=== PATIENT | female | born 1975 | race Caucasian/White ===

== ENCOUNTER → 2017-11-08 | Outpatient (REF) | payer MEDICARE, MEDICAID ==
[2017-11-08 17:45] LABS: ALBUMIN/GLOBULIN RATIO 1.03 (1.00-1.93); ALKALINE PHOSPHATASE 91 U/L (45-117); ALT/SGPT 72 U/L (12-78); ANION GAP 8 MEQ/L (8-16); AST/SGOT 51 U/L (7-37); BILIRUBIN,TOTAL 0.7 MG/DL (0.2-1.0); BLOOD UREA NITROGEN 13 MG/DL (7-18); CALCIUM LEVEL 8.9 MG/DL (8.5-10.1); CARBON DIOXIDE LEVEL 28 MEQ/L (21-32); CHLORIDE LEVEL 102 MEQ/L (98-107); CHOLESTEROL LEVEL 182 MG/DL (<200); CHOLESTEROL RISK RATIO 4.439 (<5); CREATININE FOR GFR 0.72 MG/DL (0.55-1.30); GLOMERULAR FILTRATION RATE > 60.0 (>58); GLUCOSE, FASTING 283 MG/DL (70-100); HDL CHOLESTEROL 41 MG/DL (>40); LDL CHOLESTEROL 104.8 MG/DL (<100); NON-HDL-C 141 MG/DL; POTASSIUM SERUM 4.1 MEQ/L (3.5-5.1); SODIUM LEVEL 138 MEQ/L (136-145); TOTAL PROTEIN 7.9 GM/DL (6.4-8.2); TRIGLYCERIDES LEVEL 181 MG/DL (<150)
[2017-11-08 18:31] LABS: ESTIMATED AVERAGE GLUCOSE 232 MG/DL (60-110); HEMOGLOBIN A1c 9.7 %
== END ==
LOC: M SFHCCAPE 10:17
DX: R73.01 Impaired fasting glucose (principal); Z79.899 Other long term (current) drug therapy
CPT/HCPCS: 80053

== ENCOUNTER 2017-11-21 19:13 | Emergency (ER) | payer MEDICARE, MEDICAID ==
[2017-11-21] MEDS: NS 1,000 ML IV (20:14)
[2017-11-21 20:21] LABS: BASO # 0.1 10^3/uL (0.0-0.2); BASO % 0.7 % (0.0-1.0); EOS # 0.2 10^3/uL (0.0-0.50); EOS % 2.3 % (0.0-3.0); HEMATOCRIT 48.6 % (36.0-47.0); HEMOGLOBIN 16.8 g/dl (12.0-16.0); IMMATURE GRANULOCYTE % 0.4 % (0-3.0); LYMPH # 2.7 10^3/uL (1.5-4.5); LYMPH % 29.6 % (24.0-44.0); MEAN CORPUSCULAR HEMOGLOBIN 31.8 pg (27.0-33.0); MEAN CORPUSCULAR HGB CONC 34.6 g/dl (32.0-36.5); MONO # 0.6 10^3/uL (0.0-0.8); MONO % 6.9 % (0.0-5.0); NEUTROPHILS # 5.4 10^3/uL (1.8-7.7); NEUTROPHILS % 60.1 % (36.0-66.0); PLATELET COUNT, AUTOMATED 258 10^3/uL (150-450); RED BLOOD COUNT 5.28 10^6/uL (4.00-5.40); RED CELL DISTRIBUTION WIDTH 11.7 % (11.5-14.5)
[2017-11-21 20:28] LABS: KETONE, URINE AUTO RFX NEGATIVE (NEGATIVE); LEUKOCYTE ESTERASE UR AUTO RFX NEGATIVE (NEGATIVE); NITRITE, URINE AUTO RFX NEGATIVE (NEGATIVE); RBC, URINE AUTO RFX 2 /HPF (0-3); SPECIFIC GRAVITY UR AUTO RFX 1.025 (1.002-1.035); SQUAM EPITHELIAL CELL UR AURFX 0 /HPF (0-6); WBC, URINE AUTO RFX 2 /HPF (0-3)
[2017-11-21 20:31] LABS: BEDSIDE GLUCOSE 366 MG/DL (70-105)
[2017-11-21 20:35] LABS: VENOUS BASE EXCESS -1.7 (-2.0-2.0); VENOUS HCO3 21.7 MEQ/L (23.0-27.0); VENOUS O2 SATURATION 97.7 % (60.0-80.0); VENOUS PARTIAL PRESSURE O2 97.1 mmHg (30.0-50.0); VENOUS PH 7.423 UNITS (7.330-7.430); VENOUS TOTAL CO2 22.8 MEQ/L (24.0-28.0)
[2017-11-21 20:44] LABS: ALT/SGPT 88 U/L (12-78); ANION GAP 7 MEQ/L (8-16); AST/SGOT 63 U/L (7-37); BILIRUBIN,DIRECT 0.1 MG/DL (0.0-0.2); BILIRUBIN,TOTAL 0.4 MG/DL (0.2-1.0); BLOOD UREA NITROGEN 15 MG/DL (7-18); CALCIUM LEVEL 9.8 MG/DL (8.5-10.1); CARBON DIOXIDE LEVEL 30 MEQ/L (21-32); CHLORIDE LEVEL 100 MEQ/L (98-107); GLUCOSE, FASTING 363 MG/DL (70-100); LIPASE 370 U/L (73-393); PHOSPHORUS LEVEL 3.1 MG/DL (2.5-4.9); POTASSIUM SERUM 4.1 MEQ/L (3.5-5.1); SODIUM LEVEL 137 MEQ/L (136-145); TROPONIN I < 0.02 NG/ML (< 0.10)
[2017-11-21 20:48] LABS: ESTIMATED AVERAGE GLUCOSE 229 MG/DL (60-110); HEMOGLOBIN A1c 9.6 %
[2017-11-21 20:54] LABS: ACETONE/KETONE 1.66 MG/DL (<2.81); ALKALINE PHOSPHATASE 108 U/L (45-117); CPK CREATINE PHOSPHOKINASE 36 U/L (26-192); GLOMERULAR FILTRATION RATE > 60.0 (>58); MB/CK RELATIVE INDEX 2.77 (< OR =4)
[2017-11-21] MEDS: metFORMIN (GLUCOPHAGE) 1000 MG TABLET PO (21:30)
[2017-11-21 21:46] LABS: OSMOLALITY SERUM 303 MOSM/KG (275-295)
== END 2017-11-21 21:59 | disposition home or self-care (01) ==
LOC: M ED 19:13
DX: E11.65 Type 2 diabetes mellitus with hyperglycemia (principal); E86.0 Dehydration; Z83.3 Family history of diabetes mellitus; Z88.0 Allergy status to penicillin; Z88.5 Allergy status to narcotic agent
CPT/HCPCS: 82550

== ENCOUNTER → 2018-02-18 | Outpatient (REF) | payer MEDICARE, MEDICAID ==
[2018-02-18 17:43] LABS: CREATININE, URINE 88.5 MG/DL
[2018-02-19 16:53] LABS: ALBUMIN/GLOBULIN RATIO 1.05 (1.00-1.93); ALKALINE PHOSPHATASE 85 U/L (45-117); ALT/SGPT 46 U/L (12-78); ANION GAP 8 MEQ/L (8-16); AST/SGOT 27 U/L (7-37); BILIRUBIN,TOTAL 0.7 MG/DL (0.2-1.0); BLOOD UREA NITROGEN 15 MG/DL (7-18); CALCIUM LEVEL 9.3 MG/DL (8.5-10.1); CARBON DIOXIDE LEVEL 29 MEQ/L (21-32); CHLORIDE LEVEL 103 MEQ/L (98-107); CHOLESTEROL LEVEL 160 MG/DL (<200); CHOLESTEROL RISK RATIO 3.636 (<5); CREATININE FOR GFR 0.78 MG/DL (0.55-1.30); GLOMERULAR FILTRATION RATE > 60.0 (>58); GLUCOSE, FASTING 120 MG/DL (70-100); HDL CHOLESTEROL 44 MG/DL (>40); LDL CHOLESTEROL 84.6 MG/DL (<100); NON-HDL-C 116 MG/DL; POTASSIUM SERUM 3.9 MEQ/L (3.5-5.1); SODIUM LEVEL 140 MEQ/L (136-145); TOTAL PROTEIN 7.8 GM/DL (6.4-8.2); TRIGLYCERIDES LEVEL 157 MG/DL (<150)
[2018-02-19 16:55] LABS: ESTIMATED AVERAGE GLUCOSE 151 MG/DL (60-110); HEMOGLOBIN A1c 6.9 %
== END ==
LOC: M SFHCCAPE 09:31
DX: E11.69 Type 2 diabetes mellitus with other specified complication (principal); E66.9 Obesity, unspecified; Z68.39 Body mass index [BMI] 39.0-39.9, adult
CPT/HCPCS: 80053

== ENCOUNTER → 2018-06-18 | Outpatient (REF) | payer MEDICARE, MEDICAID | LOC: M LAB REF 17:26 | DX: D17.21 Benign lipomatous neoplasm of skin and subcutaneous tissue of right arm (principal) | CPT/HCPCS: 88305 ==

== ENCOUNTER 2018-11-13 11:08 | Emergency (ER) | payer MEDICARE, MEDICAID ==
[~2018-11-13] VITALS: Ht 160 cm; Wt 88.9 kg
[2018-11-13 11:08] VITALS: BP 136/96
[~2018-11-13 11:08] MED LIST: DOCU10CA PO; ESTR625TA PO; IBUP80TA PO; METF-415 PO; MULTCAP PO; PERCOCET PO; vitamin D2 PO
[2018-11-13] MEDS ORDERED: JARD1TAB (11:13)
[2018-11-13] MEDS ORDERED: CYCL5TAB PO (11:49)
== END 2018-11-13 11:59 | disposition home or self-care (01) ==
LOC: M ED 11:08
DX: S46.911A Strain of unspecified muscle, fascia and tendon at shoulder and upper arm level, right arm, initial encounter (principal); X58.XXXA Exposure to other specified factors, initial encounter; Y92.89 Other specified places as the place of occurrence of the external cause; E11.9 Type 2 diabetes mellitus without complications; Z88.0 Allergy status to penicillin; Z88.5 Allergy status to narcotic agent; Z79.899 Other long term (current) drug therapy; Z79.84 Long term (current) use of oral hypoglycemic drugs

== ENCOUNTER 2019-07-27 11:17 | Emergency (ER) | payer MEDICARE, MEDICAID ==
[~2019-07-27] VITALS: Ht 162.6 cm; Wt 85.3 kg
[~2019-07-27 11:17] MED LIST changes: +CYCL5TAB PO; +JARD1TAB
[2019-07-27 11:18] VITALS: BP 147/84
[2019-07-27] MEDS ORDERED: METF500T13 (11:24)
[2019-07-27] MEDS ORDERED: KETOROLAC TROMETHAMINE 10 MG TAB PO ONE (12:00)
--- NOTE | 2019-07-28 06:33 | REP ---
Right wrist series: Four views. History: Right wrist pain. No history of injury. Findings: Four views of the right wrist demonstrate overall normal mineralization. Joint spaces are preserved. There is minimal spurring at the first carpometacarpal articulation. There is a small accessory ossicle along the radial aspect of this articulation as well. No erosive changes seen. No other bony abnormality. Impression: Minimal spurring first carpometacarpal articulation. Tiny accessory ossicle at this articulation. No acute bony abnormality. Electronically Signed by Jaimson Monahan MD 07/28/2019 08:34 A
== END 2019-07-27 14:10 | disposition left against medical advice (07) ==
LOC: M ED 11:17
DX: G56.01 Carpal tunnel syndrome, right upper limb (principal); E11.9 Type 2 diabetes mellitus without complications; F79 Unspecified intellectual disabilities; Z79.84 Long term (current) use of oral hypoglycemic drugs; Z88.0 Allergy status to penicillin; Z88.5 Allergy status to narcotic agent

== ENCOUNTER → 2020-05-21 | Outpatient (CLI) | payer MEDICARE, MEDICAID ==
[~2020-05-21] MED LIST changes: +METF500T13
--- NOTE | 2020-06-10 12:44 | REP ---
RIGHT ANKLE X-RAY: CLINICAL: Pain with recent trauma. TECHNIQUE: AP, lateral, bilateral oblique views of the right ankle. FINDINGS: Lateral swelling is consistent with inversion injury. A small nondisplaced avulsion fracture at the tip of the distal fibula is suggested. There is a well- corticated bony fragment adjacent to the medial malleolus which may represent old injury. The ankle mortise appears intact. IMPRESSION: Soft tissue swelling and small avulsion fracture at the distal fibula. Suspected old injuries, including small fracture fragments at the medial malleolus. MTDD
== END ==
LOC: M WUC 17:17
PROVIDERS: ATTEND Physician Assistant
DX: M25.571 Pain in right ankle and joints of right foot (principal)

== ENCOUNTER 2020-09-25 16:53 | Emergency (ER) | payer MEDICAID, MEDICARE ==
[~2020-09-25] VITALS: Ht 157.5 cm; Wt 90.6 kg
--- OUTSIDE RECORDS SUMMARY | 2020-09-25 16:59 | CCD ---
Author Author [facility] Organization [facility] Address Unknown Phone Unavailable Care Team Providers Care Risk Control Director Name Role Phone Campanaro, Mare Chiqui PA Unavailable Unavailable Campanaro, Mare Chiqui PA Unavailable Unavailable Campanaro, Mare Chiqui PA Unavailable Unavailable Campanaro, Mare Chiqui PA Unavailable Unavailable Campanaro, Mare Chiqui PA Unavailable Unavailable Campanaro, Mare Chiqui PA Unavailable Unavailable Campanaro, Mare Chiqui PA Unavailable Unavailable Campanaro, Mare Chiqui PA Unavailable Unavailable Campanaro, Mare Chiqui PA Unavailable Unavailable Campanaro, Mare Chiqui PA Unavailable Unavailable Campanaro, Mare Chiqui PA Unavailable Unavailable Campanaro, Mare Chiqui PA Unavailable Unavailable Campanaro, Mare Chiqui PA Unavailable Unavailable Campanaro, Mare Chiqui PA Unavailable Unavailable Campanaro, Mare Chiqui PA Unavailable Unavailable Campanaro, Mare Chiqui PA Unavailable Unavailable Campanaro, Mare Chiqui PA Unavailable Unavailable Campanaro, Mare Chiqui PA Unavailable Unavailable Soham APODACA MD Unavailable Unavailable Soham APODACA MD Unavailable Unavailable Soham APODACA MD Unavailable Unavailable Soham APODACA MD Unavailable Unavailable Soham APODACA MD Unavailable Unavailable Soham APODACA MD Unavailable Unavailable Soham APODACA MD Unavailable Unavailable Soham APODACA MD Unavailable Unavailable Soham APODACA MD Unavailable Unavailable Soham APODACA MD Unavailable Unavailable Soham APODACA MD Unavailable Unavailable Soham APODACA MD Unavailable Unavailable Soham APODACA MD Unavailable Unavailable Soham APODACA MD Unavailable Unavailable Soham APODACA MD Unavailable Unavailable Soham APODACA MD Unavailable Unavailable Soham APODACA MD Unavailable Unavailable Soham APODACA MD Unavailable Unavailable Soham APODACA MD Unavailable Unavailable Soham APODACA MD Unavailable Unavailable Soham APODACA MD Unavailable Unavailable DEBSoham MOLINA MD Unavailable Unavailable DEBSoham MOLINA MD Unavailable Unavailable Soham APODACA MD Unavailable Unavailable Soham APODACA MD Unavailable Unavailable Soham APODACA MD Unavailable Unavailable Soham APODACA MD Unavailable Unavailable Soham APODACA MD Unavailable Unavailable Soham APODACA MD Unavailable Unavailable Soham APODACA MD Unavailable Unavailable Soham APODACA MD Unavailable Unavailable Soham APODACA MD Unavailable Unavailable Soham APODACA MD Unavailable Unavailable Soham APODACA MD Unavailable Unavailable Soham APODACA MD Unavailable Unavailable Soham APODACA MD Unavailable Unavailable Soham APODACA MD Unavailable Unavailable Soham APODACA MD Unavailable Unavailable Soham APODACA MD Unavailable Unavailable Soham APODACA MD Unavailable Unavailable Soham APODACA MD Unavailable Unavailable Soham APODACA MD Unavailable Unavailable Soham APODACA MD Unavailable Unavailable Soham APODACA MD Unavailable Unavailable Soham APODACA MD Unavailable Unavailable Soham APODACA MD Unavailable Unavailable Soham APODACA MD Unavailable Unavailable Soham APODACA MD Unavailable Unavailable Soham APODACA MD Unavailable Unavailable Soham APODACA MD Unavailable Unavailable Soham APODACA MD Unavailable Unavailable Soham APODACA MD Unavailable Unavailable Soham APODACA MD Unavailable Unavailable Soham APODACA MD Unavailable Unavailable Soham APODACA MD Unavailable Unavailable Soham APODACA MD Unavailable Unavailable Soham APODACA MD Unavailable Unavailable Soham APODACA MD Unavailable Unavailable Soham APODACA MD Unavailable Unavailable Soham APODACA MD Unavailable Unavailable Soham APODACA MD Unavailable Unavailable Soham APODACA MD Unavailable Unavailable Soham APODACA MD Unavailable Unavailable Soham APODACA MD Unavailable Unavailable Soham APODACA MD Unavailable Unavailable Soham APODACA MD Unavailable Unavailable Soham APODACA MD Unavailable Unavailable Soham APODACA MD Unavailable Unavailable Soham APODACA MD Unavailable Unavailable Soham APODACA MD Unavailable Unavailable Soham APODACA MD Unavailable Unavailable Soham APODACA MD Unavailable Unavailable Soham APODACA MD Unavailable Unavailable Soham APODACA MD Unavailable Unavailable Soham APODACA MD Unavailable Unavailable Soham APODACA MD Unavailable Unavailable Soham APODACA MD Unavailable Unavailable Soham APODACA MD Unavailable Unavailable Soham APODACA MD Unavailable Unavailable Soham APODACA MD Unavailable Unavailable Soham APODACA MD Unavailable Unavailable Soham APODACA MD Unavailable Unavailable Soham APODACA MD Unavailable Unavailable Field, M Barratt PA Unavailable Unavailable Field, M Barratt PA Unavailable Unavailable Field, M Barratt PA Unavailable Unavailable Field, M Barratt PA Unavailable Unavailable Field, M Barratt PA Unavailable Unavailable Field, M Barratt PA Unavailable Unavailable Field, M Barratt PA Unavailable Unavailable Field, M Barratt PA Unavailable Unavailable Field, M Barratt PA Unavailable Unavailable Field, M Barratt PA Unavailable Unavailable Field, M Barratt PA Unavailable Unavailable Field, M Barratt PA Unavailable Unavailable Field, M Barratt PA Unavailable Unavailable Field, M Barratt PA Unavailable Unavailable Field, M Barratt PA Unavailable Unavailable Field, M Barratt PA Unavailable Unavailable Field, M Barratt PA Unavailable Unavailable Field, M Barratt PA Unavailable Unavailable Field, M Barratt PA Unavailable Unavailable Field, M Barratt PA Unavailable Unavailable Field, M Barratt PA Unavailable Unavailable Field, M Barratt PA Unavailable Unavailable Field, M Barratt PA Unavailable Unavailable Field, M Barratt PA Unavailable Unavailable Field, M Barratt PA Unavailable Unavailable Field, M Barratt PA Unavailable Unavailable Field, M Barratt PA Unavailable Unavailable [place], L Nuzhat ACCOUNTS RECEIVABLE SUPERVISOR Unavailable Unavailable [place], L Nuzhat ACCOUNTS RECEIVABLE SUPERVISOR Unavailable Unavailable [place], L Nuzhat ACCOUNTS RECEIVABLE SUPERVISOR Unavailable Unavailable [place], L Nuzhat ACCOUNTS RECEIVABLE SUPERVISOR Unavailable Unavailable [place], L Nuzhat ACCOUNTS RECEIVABLE SUPERVISOR Unavailable Unavailable [place], L Nuzhat ACCOUNTS RECEIVABLE SUPERVISOR Unavailable Unavailable [place], L Nuzhat ACCOUNTS RECEIVABLE SUPERVISOR Unavailable Unavailable [place], L Nuzhat ACCOUNTS RECEIVABLE SUPERVISOR Unavailable Unavailable [place], L Nuzhat ACCOUNTS RECEIVABLE SUPERVISOR Unavailable Unavailable [place], L Nuzhat ACCOUNTS RECEIVABLE SUPERVISOR Unavailable Unavailable [place], L Nuzhat ACCOUNTS RECEIVABLE SUPERVISOR Unavailable Unavailable [place], L Nuzhat ACCOUNTS RECEIVABLE SUPERVISOR Unavailable Unavailable [place], L Nuzhat ACCOUNTS RECEIVABLE SUPERVISOR Unavailable Unavailable [place], L Nuzhat ACCOUNTS RECEIVABLE SUPERVISOR Unavailable Unavailable [place], L Nuzhat ACCOUNTS RECEIVABLE SUPERVISOR Unavailable Unavailable [place], L Nuzhat ACCOUNTS RECEIVABLE SUPERVISOR Unavailable Unavailable [place], L Nuzhat ACCOUNTS RECEIVABLE SUPERVISOR Unavailable Unavailable [place], L Nuzhat ACCOUNTS RECEIVABLE SUPERVISOR Unavailable Unavailable [place], L Nuzhat ACCOUNTS RECEIVABLE SUPERVISOR Unavailable Unavailable [place], L Nuzhat ACCOUNTS RECEIVABLE SUPERVISOR Unavailable Unavailable [place], L Nuzhat ACCOUNTS RECEIVABLE SUPERVISOR Unavailable Unavailable [place], L Nuzhat ACCOUNTS RECEIVABLE SUPERVISOR Unavailable Unavailable Re-disclosure Warning The records that you are about to access may contain information from federally-assisted alcohol or drug abuse programs. If such information is present, then the following federally mandated warning applies: This information has been disclosed to you from records protected by federal confidentiality rules (42 CFR part 2). The federal rules prohibit you from making any further disclosure of this information unless further disclosure is expressly permitted by the written consent of the person to whom it pertains or as otherwise permitted by 42 CFR part 2. A general authorization for the release of medical or other information is NOT sufficient for this purpose. The Federal rules restrict any use of the information to criminally investigate or prosecute any alcohol or drug abuse patient.The records that you are about to access may contain highly sensitive health information, the redisclosure of which is protected by Article 27-F of the [facility] Public Health law. If you continue you may have access to information: Regarding HIV / AIDS; Provided by facilities licensed or operated by the [facility] Office of Mental Health; or Provided by the [facility] Office for People With Developmental Disabilities. If such information is present, then the following [facility] mandated warning applies: This information has been disclosed to you from confidential records which are protected by state law. State law prohibits you from making any further disclosure of this information without the specific written consent of the person to whom it pertains, or as otherwise permitted by law. Any unauthorized further disclosure in violation of state law may result in a fine or longterm sentence or both. A general authorization for the release of medical or other information is NOT sufficient authorization for further disc losure. Family History Family Member Name Family Member Gender Family Member Status Date o f Status Description Data Source(s) Unknown Male Problem [facility] ([facility] Unknown Unknown Problem [facility] ([facility] Encounters Encounter Providers Location Date Indications Data Source(s ) OFFICE OUTPATIENT NEW 30 MINUTES Attender: Olesya CRANDALL Ph ysical Therapy 05/24/2020 02:00:00 PM EDT MEDENT ([facility]) Outpatient Attender: Chiqui Pal Prim remy 05/21/2020 04:50:00 PM EDT MEDENT ([facility]) Outpatient Attender: MARCE APODACA MD FP 02/17/2020 07:57:20 P M EDT [facility] Outpatient Attender: Nuzhat Barahona ACCOUNTS RECEIVABLE SUPERVISOR Main Office 11/04/2019 08:30:00 AM EST MEDENT ([facility] Insurance Providers Payer name Policy type / Coverage type Policy ID Covered democrat ID Covered democrat's relationship to curtis Policy Curtis Plan Information EMEDNY [id number] SP [id number] [facility] AZLE [id number] SP [id number] [facility] O [id number] S [id number] MEDICAID M [id number] S [id number] MEDICAID [id number] SP [id number] [facility] [id number] ANSMedicare Part B [id number] [facility] AZLE [id number] SP [id number] MEDICARE [id number] SP [id number] ANS-Medicaid [id number] ANSI-Medicare Part B [id number] ANSI-Medicare Part B [id number] ANSI-Medicaid [id number] ANSI-Medicare Part B [id number] ANSI-Medicaid [id number] ANSI-Medicare Part B [id number] ANSI-Medicaid [id number] ANSI-Medicaid [id number] ANSI-Medicare Part B [id number] MEDICARE [id number] SP [id number] [place] [id number] Self [id number] Medicare - NGS Medicare Primary [id number] Self [id number] Medicare Community Plan Commercial [id number] Self [id number] [place] Medig[place] [id number] Self [id number] Medicare [place] Medicare Primary [id number] Self [id number] [facility] DUAL COMPLET [place] [id number] S [id number] MEDICARE C [id number] Problems, Conditions, and Diagnoses Code Display Name Description Problem Type Effective Dates Data Source(s) [id number] Type 2 diabetes mellitus Type 2 diabetes mellitus Prob aj 05/24/2020 12:00:00 AM EDT MEDENT ([facility]) Social History Code Duration Value Status Description Data Source(s ) Smoking 05/21/2020 12:00:00 AM EDT Patient has never smoked co mpleted Patient has never smoked MEDENT ([facility]) Vital Signs ID Date Data Source UNK Name Value Range Interpretation Code Description Data Source(s) Body mass index (BMI) [Ratio] 35.7 kg/m2 35.7 k g/m2 MEDENT ([facility]) Body height 62 [in_i] 62 [in_i] MEDENT ([facility]) 5'2" Body weight 195.00 [lb_av] 195.00 [lb_av] MEDEN T ([facility]) Body temperature 97.7 [degF] 97.7 [degF] MEDENT ([facility]) Oxygen saturation in Arterial blood by Pulse oximetry 98 % 98 % [facility] ([facility]) Heart rate 92 /min 92 /min MEDENT ([facility]) Diastolic blood pressure 102 mm[Hg] 102 mm[Hg] [facility] ([facility]) Systolic blood pressure 142 mm[Hg] 142 mm[Hg] M EDENT ([facility]) Body mass index (BMI) [Ratio] 33.1 kg/m2 33.1 k g/m2 MED[facility] ([facility] Body weight 187.00 [lb_av] 187.00 [lb_av] MEDEN T ([facility] Body height 63 [in_i] 63 [in_i] MED[facility] ([facility] 5'3" Oxygen saturation in Arterial blood by Pulse oximetry 97 % 97 % MEDENT ([facility] Heart rate 86 /min 86 /min DARIUS ([facility] Diastolic blood pressure 84 mm[Hg] 84 mm[Hg] DARIUS ([facility] Systolic blood pressure 122 mm[Hg] 122 mm[Hg] Godwin RAPHAEL ([facility]
[2020-09-25] MEDS ORDERED: LIDOCAINE 5% (LIDODERM) PATCH TD ONE (17:15)
[2020-09-25] MEDS ORDERED: ACETAMINOPHEN 500 MG TAB PO ONE (17:15)
[2020-09-25] MEDS ORDERED: CYCLOBENZAPRINE 5MG TABLET PO ONE (17:15)
--- OUTSIDE RECORDS SUMMARY | 2020-09-25 17:40 | CCD ---
Author Author [facility] Organization [facility] Address Unknown Phone Unavailable Care Team Providers Care Garment Finisher Name Role Phone Campanaro, Mare Chiqui PA [...] Unavailable Soham APODACA MD Unavailable Unavailable Soham AOPDACA MD Unavailable Unavailable Soham APODACA MD Unavailable Unavailable Soham APODACA MD Unavailable Unavailable Soham APODACA MD Unavailable Unavailable Soham APDOACA MD Unavailable Unavailable Soham APODACA MD Unavailable [...] Barratt PA Unavailable Unavailable [place], L Nuzhat APPRENTICE FUNERAL DIRECTOR Unavailable Unavailable [place], L Nuzhat APPRENTICE FUNERAL DIRECTOR Unavailable Unavailable [place], L Nuzhat APPRENTICE FUNERAL DIRECTOR Unavailable Unavailable [place], L Nuzhat APPRENTICE FUNERAL DIRECTOR Unavailable Unavailable [place], L Nuzhat APPRENTICE FUNERAL DIRECTOR Unavailable Unavailable [place], L Nuzhat APPRENTICE FUNERAL DIRECTOR Unavailable Unavailable [place], L Nuzhat APPRENTICE FUNERAL DIRECTOR Unavailable Unavailable [place], L Nuzhat APPRENTICE FUNERAL DIRECTOR Unavailable Unavailable [place], L Nuzhat APPRENTICE FUNERAL DIRECTOR Unavailable Unavailable [place], L Nuzhat APPRENTICE FUNERAL DIRECTOR Unavailable Unavailable [place], L Nuzhat APPRENTICE FUNERAL DIRECTOR Unavailable Unavailable [place], L Nuzhat APPRENTICE FUNERAL DIRECTOR Unavailable Unavailable [place], L Nuzhat APPRENTICE FUNERAL DIRECTOR Unavailable Unavailable [place], L Nuzhat APPRENTICE FUNERAL DIRECTOR Unavailable Unavailable [place], L Nuzhat APPRENTICE FUNERAL DIRECTOR Unavailable Unavailable [place], L Nuzhat APPRENTICE FUNERAL DIRECTOR Unavailable Unavailable [place], L Nuzhat APPRENTICE FUNERAL DIRECTOR Unavailable Unavailable [place], L Nuzhat APPRENTICE FUNERAL DIRECTOR Unavailable Unavailable [place], L Nuzhat APPRENTICE FUNERAL DIRECTOR Unavailable Unavailable [place], L Nuzhat APPRENTICE FUNERAL DIRECTOR Unavailable Unavailable [place], L Nuzhat APPRENTICE FUNERAL DIRECTOR Unavailable Unavailable [place], L Nuzhat APPRENTICE FUNERAL DIRECTOR Unavailable Unavailable Re-disclosure Warning The records that [...] is protected by Article 27-F of the [facility] Public Health law. If you continue you may have access to information: Regarding HIV / AIDS; Provided by facilities licensed or operated by the [facility] Office of Mental Health; or Provided by the [facility] Office for People With Developmental Disabilities. If such information is present, then the following [facility] mandated warning applies: This information has been [...] law may result in a fine or long term sentence or both. A general authorization for [...] ysical Therapy 05/24/2020 02:00:00 PM EDT MEDENT ([facility]) Outpatient Attender: Chiqui Pal Prim remy 05/21/2020 04:50:00 PM EDT MED[facility] ([facility]) Outpatient Attender: MARCE APODACA MD FP 02/17/2020 07:57:20 P M EDT [facility] Outpatient Attender: Nuzhat Barahona APPRENTICE FUNERAL DIRECTOR Main Office 11/04/2019 08:30:00 AM EST MED[facility] ([facility] Insurance Providers Payer name Policy type / Coverage type Policy ID Covered democrat ID Covered democrat's relationship to curtis Policy Curtis Plan Information [facility] [id number] SP [id number] EMEDNY [id number] SP [id number] [facility] O [id number] S [id number] MEDICAID M [id number] S [id number] MEDICAID [id number] SP [id number] [facility] [id number] ANS-Medicare Part B [id number] [facility] [id number] SP [id number] MEDICARE [id number] SP [id number] ANS-Medicaid [id number] ANSI-Medicare Part B [id number] ANSI-Medicare Part B [id number] ANSI-Medicaid [id number] ANSI-Medicare Part B [id number] ANSI-Medicaid [id number] ANSI-Medicare Part B [id number] ANSI-Medicaid [id number] ANSI-Medicaid [id number] ANSI-Medicare Part B [id number] MEDICARE [id number] SP [id number] [place] [id number] Self [id number] Medicare - [place] Medicare Primary [id number] Self [id number] Medicare Community Plan Commercial [id number] Self [id number] [place] [id number] Self [id number] Medicare [place]/N[place] Medicare Primary [id number] Self [id number] [facility] DUAL COMPLET [place] [id number] S [id number] MEDICARE C [id number] 4C1 Problems, Conditions, and Diagnoses Code Display Name Description Problem Type Effective Dates Data Source(s) [id number] Type 2 diabetes mellitus Type 2 diabetes mellitus Prob aj 05/24/2020 12:00:00 AM EDT MED[facility] ([facility]) Social History Code Duration Value Status Description Data Source(s ) Smoking 05/21/2020 12:00:00 AM EDT Patient has never smoked co mpleted Patient has never smoked [facility] ([facility]) Vital Signs ID Date Data Source UNK Name Value Range Interpretation Code Description Data Source(s) Body mass index (BMI) [Ratio] 35.7 kg/m2 35.7 k g/m2 MEDENT ([facility]) Body height 62 [in_i] 62 [in_i] MEDENT ([facility]) 5'2" Body weight 195.00 [lb_av] 195.00 [lb_av] MEDEN T ([facility]) Body temperature 97.7 [degF] 97.7 [degF] MEDENT ([facility]) Oxygen saturation in Arterial blood by Pulse oximetry 98 % 98 % [facility] ([facility]) Heart rate 92 /min 92 /min MED[facility] ([facility]) Diastolic blood pressure 102 mm[Hg] 102 mm[Hg] [facility] ([facility]) Systolic blood pressure 142 mm[Hg] 142 mm[Hg] M EDENT ([facility]) Body mass index (BMI) [Ratio] 33.1 kg/m2 [...]
--- NOTE | 2020-09-25 18:10 | REPVR ---
PROCEDURE INFORMATION: Exam: CT Lumbar Spine Without Contrast Exam date and time: 09/25/2020 5:19 PM Age: 45 years old Clinical indication: Low back pain; Additional info: L low back pain radiating to lle TECHNIQUE: Imaging protocol: Computed tomography images of the lumbar spine without contrast. Radiation optimization: All CT scans at this facility use at least one of these dose optimization techniques: automated exposure control; mA and/or kV adjustment per patient size (includes targeted exams where dose is matched to clinical indication); or iterative reconstruction. COMPARISON: No relevant prior studies available. FINDINGS: Vertebrae: No acute compression fracture in the lumbar spine. The alignment is normal. There is degeneration of the facet joints at the L4-L5 and L5-S1 levels. Discs/Spinal canal/Neural foramina: There is mild disc space narrowing at the T10-11, T11-12 and T12-L1 levels with minimal marginal osteophyte formation. There is no evidence disc space narrowing at the L2-L3 through L5-S1 levels. There does not appear to be spinal canal stenosis or neural foraminal narrowing throughout the lumbar spine. Soft tissues: Unremarkable. IMPRESSION: No evidence of neural compromise. There is degenerative facet arthropathy at the L4-L5 and L5-S1 levels. Electronically signed by: Romy Contreras On 09/25/2020 18:10:45 PM
[2020-09-25] MEDS ORDERED: ONDANSETRON 4 MG ORAL DISINTEGRATING TAB PO ONE (18:15)
[2020-09-25] MEDS ORDERED: LIDO5DIS41 TOP (18:18)
[2020-09-25 18:23] VITALS: BP 140/98
[2020-09-25] MEDS ORDERED: **NOTE PATIENT COMMENT** MISC XX SCH (21:00)
== END 2020-09-25 18:45 | disposition home or self-care (01) ==
LOC: M ED 16:53
DX: M51.36 Other intervertebral disc degeneration, lumbar region (principal); M51.37 Other intervertebral disc degeneration, lumbosacral region; E11.65 Type 2 diabetes mellitus with hyperglycemia; Z79.84 Long term (current) use of oral hypoglycemic drugs; Z79.899 Other long term (current) drug therapy; Z88.0 Allergy status to penicillin; Z88.6 Allergy status to analgesic agent
CPT/HCPCS: 72131; 99283; Q0162

== ENCOUNTER 2021-04-23 20:02 | Emergency (ER) | payer MEDICARE ==
[~2021-04-23] VITALS: Ht 160 cm; Wt 86.7 kg
[~2021-04-23 20:02] MED LIST changes: +LIDO5DIS41 TOP
--- NOTE | 2021-04-23 21:34 | REPVR ---
PROCEDURE INFORMATION: Exam: XR Right Wrist Exam date and time: 04/23/2021 9:15 PM Age: 45 years old Clinical indication: Pain; Wrist; Right; Additional info: Pain over distal ulna TECHNIQUE: Imaging protocol: XR Right wrist. Views: 3 or more views. COMPARISON: CR Wrist, complete 07/27/2019 11:44 AM FINDINGS: Bones/joints: Normal. Soft tissues: Normal. IMPRESSION: No acute fracture or dislocation within the right wrist, with particular attention to the distal right ulna as per clinical request. Electronically signed by: Trevor Luna On 04/23/2021 21:34:15 PM
[2021-04-23 21:48] VITALS: BP 139/73
[2021-04-23] MEDS ORDERED: IBUP-1022 PO (22:00)
== END 2021-04-23 22:09 | disposition home or self-care (01) ==
LOC: M ED 20:02
DX: M67.833 Other specified disorders of tendon, right wrist (principal); E11.9 Type 2 diabetes mellitus without complications; Z88.0 Allergy status to penicillin; Z88.6 Allergy status to analgesic agent; Z79.899 Other long term (current) drug therapy

== ENCOUNTER 2022-06-01 11:40 | Emergency (ER) | payer MEDICARE, MEDICAID ==
[~2022-06-01] VITALS: Ht 160 cm; Wt 81.2 kg
[~2022-06-01 11:40] MED LIST changes: +IBUP-1022 PO
[2022-06-01 11:41] VITALS: BP 156/93
== END 2022-06-01 14:30 | disposition left against medical advice (07) ==
LOC: M ED 11:40
DX: Z53.21 Procedure and treatment not carried out due to patient leaving prior to being seen by health care provider (principal)

== ENCOUNTER → 2022-07-04 | Outpatient (CLI) | payer MEDICARE, MEDICAID ==
[2022-07-04 18:42] LABS: ALBUMIN 3.8 GM/DL (3.2-5.2); ALT/SGPT 38 U/L (12-78); BILIRUBIN,TOTAL 0.6 MG/DL (0.2-1.0); BLOOD UREA NITROGEN 13 MG/DL (7-18); CALCIUM LEVEL 9.8 MG/DL (8.5-10.1); CARBON DIOXIDE LEVEL 27 MEQ/L (21-32); CHLORIDE LEVEL 99 MEQ/L (98-107); CHOLESTEROL LEVEL 211 MG/DL (<200); CHOLESTEROL RISK RATIO 4.586 (<5); CREATININE FOR GFR 0.84 MG/DL (0.55-1.30); GLOMERULAR FILTRATION RATE > 60.0 (>58); GLUCOSE, FASTING 302 MG/DL (70-100); HDL CHOLESTEROL 46 MG/DL (>40); LDL CHOLESTEROL 125 MG/DL (<100); NON-HDL-C 165 MG/DL; SODIUM LEVEL 136 MEQ/L (136-145); TRIGLYCERIDES LEVEL 202 MG/DL (<150)
[2022-07-04 18:54] LABS: MALB URINE SIEMENS 17.8 MG/L; MAU/CREAT RATIO 13.3 MCG/MG (0.0-30.0)
[2022-07-04 20:42] LABS: HEMOGLOBIN A1c 9.2 %
== END ==
LOC: M PLALAB 14:13
PROVIDERS: ATTEND Family Medicine
DX: E11.65 Type 2 diabetes mellitus with hyperglycemia (principal)

== ENCOUNTER → 2023-02-14 | Outpatient (CLI) | payer MEDICARE, MEDICAID ==
[2023-02-14 18:28] LABS: HEMOGLOBIN A1c 10.5 % (4.0-6.0)
== END ==
LOC: M PLALAB 15:18
PROVIDERS: ATTEND Family Medicine
DX: E11.65 Type 2 diabetes mellitus with hyperglycemia (principal)

== ENCOUNTER → 2023-05-18 | Outpatient (CLI) | payer MEDICARE, MEDICAID ==
[2023-05-18 19:34] LABS: HEMOGLOBIN A1c 6.2 % (4.0-6.0)
== END ==
LOC: M PLALAB 15:25
PROVIDERS: ATTEND Family Medicine
DX: E11.65 Type 2 diabetes mellitus with hyperglycemia (principal)

== ENCOUNTER → 2024-06-12 | Outpatient (CLI) | payer MEDICARE, MEDICAID ==
[2024-06-12 14:29] LABS: HEMOGLOBIN A1c 4.9 % (4.0-6.0)
[2024-06-12 14:33] LABS: CREATININE, URINE 161.1 MG/DL; MALB URINE SIEMENS < 3.0 MG/L; MAU/CREAT RATIO 1.8 MCG/MG (0.0-30.0)
[2024-06-12 14:35] LABS: ALBUMIN 3.6 G/DL (3.2-5.2); ALKALINE PHOSPHATASE 80 U/L (46-116); ALT/SGPT 15 U/L (7.0-40); AST/SGOT 10 U/L (<34); BILIRUBIN,TOTAL 0.5 MG/DL (0.3-1.2); BLOOD UREA NITROGEN 9 MG/DL (9-23); CALCIUM LEVEL 9.8 MG/DL (8.5-10.1); CARBON DIOXIDE LEVEL 29 MMOL/L (20-31); CHLORIDE LEVEL 107 MMOL/L (98-107); CHOLESTEROL LEVEL 178 MG/DL (<200); CHOLESTEROL RISK RATIO 4.08 (<5); CREATININE FOR GFR 0.68 MG/DL (0.55-1.30); GLOMERULAR FILTRATION RATE > 60.0 (>58); GLUCOSE, FASTING 101 MG/DL (60-100); HDL CHOLESTEROL 43.6 MG/DL (>40); LDL CHOLESTEROL 106.8 MG/DL (<100); NON-HDL-C 134.4 MG/DL; SODIUM LEVEL 141 MMOL/L (136-145); TOTAL PROTEIN 7.1 G/DL (5.7-8.2); TRIGLYCERIDES LEVEL 138 MG/DL (<150)
== END ==
LOC: M PLALAB 12:08
PROVIDERS: ATTEND Family Medicine
DX: E11.65 Type 2 diabetes mellitus with hyperglycemia (principal); E78.1 Pure hyperglyceridemia

== ENCOUNTER → 2024-08-25 | Outpatient (CLI) | payer MEDICARE, MEDICAID ==
[~2024-08-25] MED LIST changes: -CYCL5TAB PO; +CYCL5TAB4 PO
== END ==
LOC: M WHC 14:50
PROVIDERS: ATTEND Family Medicine
DX: Z12.31 Encounter for screening mammogram for malignant neoplasm of breast (principal)

== ENCOUNTER 2025-03-18 21:06 | Emergency (ER) | payer MEDICARE, MEDICAID ==
[~2025-03-18] VITALS: Ht 167.6 cm; Wt 77.6 kg
[~2025-03-18 21:06] MED LIST changes: +LIDO1ADH93 TOP; -LIDO5DIS41 TOP
[2025-03-18 21:12] VITALS: BP 133/84; TEMP 99.8; O2SAT 97
== END 2025-03-18 22:02 | disposition left against medical advice (07) ==
LOC: M ED 21:06
DX: Z53.21 Procedure and treatment not carried out due to patient leaving prior to being seen by health care provider (principal)

== ENCOUNTER 2025-03-22 20:39 | Emergency (ER) | payer MEDICARE, MEDICAID ==
[~2025-03-22] VITALS: Ht 167.6 cm; Wt 77.7 kg
[2025-03-22 21:28] LABS: BASO # 0.1 10^3/uL (0.0-0.2); BASO % 0.6 % (0.0-1.0); EOS # 0.1 10^3/uL (0.0-0.5); EOS % 1.0 % (0.0-3.0); LYMPH # 2.5 10^3/uL (1.5-5.0); LYMPH % 31.2 % (24.0-44.0); MONO # 0.5 10^3/uL (0.0-0.8); MONO % 6.0 % (2.0-8.0); NEUTROPHILS # 4.9 10^3/uL (1.5-8.5); NEUTROPHILS % 61.0 % (36.0-66.0); PLATELET COUNT, AUTOMATED 277 10^3/uL (150-450)
[2025-03-22 22:01] LABS: CALCIUM LEVEL 9.7 MG/DL (8.5-10.1); CARBON DIOXIDE LEVEL 29 MMOL/L (20-31); CHLORIDE LEVEL 102 MMOL/L (98-107); CK-MB VALUE MASS < 1.0 NG/ML (<3.6); CREATININE FOR GFR 0.88 MG/DL (0.55-1.30); GLOMERULAR FILTRATION RATE 80.0 (>51); POTASSIUM SERUM 4.0 MMOL/L (3.5-5.1); SODIUM LEVEL 142 MMOL/L (136-145)
[2025-03-22 22:04] LABS: CPK CREATINE PHOSPHOKINASE 47 U/L (34-145)
[2025-03-22 22:41] LABS: ALT/SGPT 25 U/L (7.0-40); AST/SGOT 24 U/L (<34)
[2025-03-22 22:58] LABS: CK-MB VALUE MASS < 1.0 NG/ML (<3.6)
[2025-03-22 22:59] LABS: CPK CREATINE PHOSPHOKINASE 40 U/L (34-145)
[2025-03-23 01:45] VITALS: BP 126/78; TEMP 98.2; O2SAT 95
== END 2025-03-23 02:00 | disposition home or self-care (01) ==
LOC: M ED 20:39
DX: R07.9 Chest pain, unspecified (principal); E11.9 Type 2 diabetes mellitus without complications; Z88.0 Allergy status to penicillin; Z88.5 Allergy status to narcotic agent